=== PATIENT | female | born 1995 | race Caucasian/White ===

== ENCOUNTER 2020-10-11 23:36 | Emergency (ER) | payer SELFPAY ==
[~2020-10-11] VITALS: Ht 152.4 cm; Wt 82.0 kg
[2020-10-11 23:48] VITALS: BP 113/70
== END 2020-10-12 01:04 | disposition left against medical advice (07) ==
LOC: ER 23:36
DX: U07.1 COVID-19 (principal)
CPT/HCPCS: 99281